=== PATIENT | male | born 1960 | race Caucasian/White ===

== ENCOUNTER 2018-09-12 15:18 | Emergency (ER) | payer MEDICAID ==
[~2018-09-12] VITALS: Ht 175.3 cm; Wt 72.6 kg
[2018-09-12 15:36] VITALS: BP_SYST 156
== END 2018-09-12 18:01 | disposition left against medical advice (07) ==
LOC: SED 15:18
DX: Z76.0 Encounter for issue of repeat prescription (principal); Z53.21 Procedure and treatment not carried out due to patient leaving prior to being seen by health care provider